=== PATIENT | female | born 1980 | race Caucasian/White ===

== ENCOUNTER 2017-10-01 21:41 | Emergency (ER) | payer BC ==
[2017-10-01 22:20] LABS: #Basophils 0.1 thou/uL (0.0-0.2); #Eosinphils 0.3 thou/uL (0.0-0.7); #Lymphocytes 3.1 thou/uL (1.20-3.40); #Monocytes 0.6 thou/uL (0.11-0.59); #Neutrophils 5.6 thou/uL (1.40-6.50); %Basophils 0.9 % (0.0-1.0); %Eosinophils 2.9 % (0.0-10.0); %Lymphocytes 31.9 % (21.0-51.0); %Monocytes 6.1 % (0.0-10.0); %Neutrophils 58.2 % (42.0-75.0); Hemoglobin 14.6 g/dL (12.0-16.0); Mean Corpuscular HGB CONC 34.4 g/dL (32.0-36.0); Mean Platelet Volume 7.1 fL (7.4-10.4); Platelet Count 317 thou/uL (130-400); RBC Distribution Width 11.1 % (11.5-14.5); Red Blood Cell (RBC) Count 4.72 mill/uL (4.20-5.40); White Blood Cell (WBC) Count 9.6 thou/uL (4.8-10.8)
[2017-10-01 22:25] LABS: BHCG - Serum Negative (NEGATIVE); Pregs Control Background? CLEAR/WHITE (CLR/WHITE); Pregs Control Bar Appear? YES (CONTROL BAR)
[2017-10-01 22:41] LABS: ALT (SGPT) 15 U/L (8-55); AST (SGOT) 16 U/L (5-34); Albumin 4.6 g/dL (3.5-5.0); Alkaline Phosphatase 54 U/L (40-150); Anion Gap 11 mmol/L (10-20); BUN (Urea Nitrogen) 10 mg/dL (7.0-18.7); Bilirubin, Total 0.5 mg/dL (0.2-1.2); Calc. Creatinine Clearance 0 mL/min (70-130); Calcium 9.5 mg/dL (7.8-10.44); Carbon Dioxide 20 mmol/L (22-29); Chloride 109 mmol/L (98-107); Estimated GFR-MDRD 53; Globulin 2.3 g/dL (2.4-3.5); Glucose 93 mg/dL (70-105); Lipase 12 U/L (8-78); Magnesium 2.1 mg/dL (1.6-2.6); Potassium 3.3 mmol/L (3.5-5.1); Protein, Total 6.9 g/dL (6.0-8.3); Sodium 137 mmol/L (136-145)
[2017-10-01 22:45] LABS: CKMB 0.6 ng/mL (0-6.6); Troponin I Less than 0.010 ng/mL (< 0.028)
--- NOTE | 2017-10-01 23:13 | RAD ---
PORTABLE CHEST: History: Chest pain. FINDINGS: Lungs are clear. Heart and mediastinum appear normal. IMPRESSION: Negative portable chest. POS: [facility]
[2017-10-01] MEDS ORDERED: Ketorolac Tromethamine 30 MG/ML VIAL ONE (23:32)
--- NOTE | 2017-10-28 01:25 | EKG ---
Test Reason : CHEST PAIN Blood Pressure : / mmHG Vent. Rate : 088 BPM Atrial Rate : 088 BPM P-R Int : 136 ms QRS Dur : 074 ms QT Int : 372 ms P-R-T Axes : 035 038 035 degrees QTc Int : 450 ms Normal sinus rhythm Nonspecific ST and T wave abnormality Abnormal ECG Confirmed by MAGDA VAZQUEZ, AGUSTÍN ([id number]), editorial manager [employer] ([id number]) on 10/28/2017 1:25:29 AM Referred By: Confirmed By:AGUSTÍN MAN MD
== END 2017-10-02 00:15 | disposition home or self-care (01) ==
LOC: ERS 21:41
DX: M94.0 Chondrocostal junction syndrome [Tietze] (principal); E03.9 Hypothyroidism, unspecified; G43.909 Migraine, unspecified, not intractable, without status migrainosus; F17.210 Nicotine dependence, cigarettes, uncomplicated; Z79.899 Other long term (current) drug therapy
CPT/HCPCS: 36415; 71045; 80053; 82553; 83690; 83735; 84484; 84703; 85025; 93005; 99406; J1885

== ENCOUNTER 2018-05-21 11:27 | Emergency (ER) | payer BC ==
--- NOTE | 2018-05-21 13:32 | RAD ---
ABDOMEN ONE VIEW: History: 37-year-old female with history of constipation, swelling in hands for three days. FINDINGS: Scattered gas and fecal material in the colon. No evidence for large or small bowel obstruction. No o vert calculus. IMPRESSION: Unremarkable abdomen one view. POS: [facility]
== END 2018-05-21 13:05 | disposition home or self-care (01) ==
LOC: ERS 11:27
DX: K59.00 Constipation, unspecified (principal); G43.909 Migraine, unspecified, not intractable, without status migrainosus; F17.210 Nicotine dependence, cigarettes, uncomplicated; Z79.899 Other long term (current) drug therapy; Z71.6 Tobacco abuse counseling
CPT/HCPCS: 74018

== ENCOUNTER 2018-05-21 22:36 | Emergency (ER) | payer BC ==
[2018-05-21] MEDS ORDERED: Acetaminophen 500 MG TAB ONE (23:55)
[2018-05-21] MEDS ORDERED: Cyclobenzaprine 10 MG TAB ONE (23:55)
--- NOTE | 2018-05-22 07:32 | CT ---
NONCONTRAST HEAD CT: Date: 05/21/18 COMPARISON: 04/17/13. HISTORY: Headache. FINDINGS: Limited evaluation due to motion degradation. No parenchymal hemorrhage. No extra-axial hematoma. No midline shift. Basilar cisterns are patent. Br ain volume, age-appropriate. Cortical rondon-white matter differentiation is preserved. No evidence of hydrocephalus. Adequate aeration of the sinuses and mastoid air cells. Minimal mucosal thickening of the right maxil vinny sinus. Calvarium is intact. IMPRESSION: No acute intracranial process. POS: [facility]
== END 2018-05-22 00:32 | disposition home or self-care (01) ==
LOC: ERS 22:36
DX: M62.838 Other muscle spasm (principal); R51 Headache; K08.89 Other specified disorders of teeth and supporting structures; F17.210 Nicotine dependence, cigarettes, uncomplicated; E03.9 Hypothyroidism, unspecified; L65.9 Nonscarring hair loss, unspecified; F41.9 Anxiety disorder, unspecified
CPT/HCPCS: 70450; 74018; 99406

== ENCOUNTER 2018-05-22 15:36 | Outpatient (CLI) | payer BC ==
--- NOTE | 2018-05-22 16:49 | RAD ---
3 VIEWS CERVICAL SPINE: Date: 05/22/18 COMPARISON: None. HISTORY: Knots in the neck with bilateral hand swelling. Cervical radiculopathy and cervical spine. FINDINGS: Lateral views of the cervical spine were performed in neutral, flexion, and extension. The vertebral bodies and intervertebral discs demonstrate normal height and alignment without fracture or subluxati on. No prevertebral soft tissue swelling is seen. No significant degenerative changes are seen. Align ment is unchanged with neutral, flexion, and extension. IMPRESSION: No significant abnormality. POS: [facility]
--- NOTE | 2018-05-22 17:17 | MRI ---
MRI OF THE CERVICAL SPINE WITHOUT CONTRAST: 05/22/18 COMPARISON: None. HISTORY: Knots in the neck and bilateral hand tingling and swelling. Cervical radiculopathy. TECHNIQUE: Multiplanar and multisequence MRI images were obtained in the cervical spine without contrast. FINDINGS: The vertebral bodies and intervertebral discs demonstrate normal height and alignment without fractur e or subluxation. The visualized cord demonstrates normal signal throughout. The craniocervical junct ion is unremarkable. The prevertebral and paraspinal soft tissues are unremarkable. No significant posterior bulge or protrusion is seen throughout the cervical spine. No posterior face t arthrosis is seen. No neural foraminal or central canal stenosis. IMPRESSION: Normal MRI of the cervical spine. POS: [facility]
== END 2018-05-22 15:37 | disposition home or self-care (01) ==
LOC: TBSIIMAG 15:36
PROVIDERS: ATTEND Neurological Surgery
DX: M54.12 Radiculopathy, cervical region (principal)
CPT/HCPCS: 72040; 72141

== ENCOUNTER 2018-09-18 08:43 | Outpatient (CLI) | payer BC ==
--- NOTE | 2018-09-18 09:30 | RAD ---
CHEST TWO VIEWS: Comparison: 02-20-17 FINDINGS: Normal cardiac silhouette. The pulmonary vessels and hilum are normal. Costophrenic angles are clear. No mass. No consolidation. No pneumothorax or osseous abnormalities. IMPRESSION: No acute cardiopulmonary process. POS: [facility]
== END 2018-09-18 08:44 | disposition home or self-care (01) ==
LOC: RAD-FRANK 08:43
PROVIDERS: ATTEND Nurse Practitioner Family
DX: R05 Cough (principal)
CPT/HCPCS: 71046

== ENCOUNTER 2019-04-26 23:22 | Emergency (ER) | payer BC ==
[2019-04-27 00:02] LABS: Bilirubin Negative (Negative); Blood, Urine Negative (Negative); Clarity Clear (Clear); Glucose, Urine (Dipstick) Normal (Negative); Leukocyte Negative Leu/uL (Negative); Nitrite Negative (Negative); Protein, Urine (Dipstick) Negative (Neg-Trace); Urobilinogen Normal mg/dL (Less than 2)
[2019-04-27 00:22] LABS: #Basophils 0.1 thou/uL (0.0-0.2); #Eosinphils 0.7 thou/uL (0.0-0.7); #Lymphocytes 3.3 thou/uL (1.20-3.40); #Monocytes 0.8 thou/uL (0.11-0.59); #Neutrophils 6.7 thou/uL (1.40-6.50); %Basophils 1.3 % (0.0-1.0); %Eosinophils 6.1 % (0.0-10.0); %Lymphocytes 28.2 % (21.0-51.0); %Neutrophils 57.4 % (42.0-75.0); Hemoglobin 15.1 g/dL (12.0-16.0); Mean Corpuscular HGB CONC 33.8 g/dL (32.0-36.0); Mean Corpuscular Volume 94.8 fL (78.0-98.0); Platelet Count 217 thou/uL (130-400); RBC Distribution Width 11.3 % (11.5-14.5); Red Blood Cell (RBC) Count 4.72 mill/uL (4.20-5.40); White Blood Cell (WBC) Count 11.7 thou/uL (4.8-10.8)
[2019-04-27 00:41] LABS: ALT (SGPT) 22 U/L (8-55); AST (SGOT) 26 U/L (5-34); Albumin 4.2 g/dL (3.5-5.0); Alkaline Phosphatase 64 U/L (40-110); Anion Gap 14 mmol/L (10-20); BUN (Urea Nitrogen) 13 mg/dL (7.0-18.7); Bilirubin, Total 0.2 mg/dL (0.2-1.2); Calc. Creatinine Clearance 0 mL/min (70-130); Carbon Dioxide 20 mmol/L (22-29); Chloride 106 mmol/L (98-107); Estimated GFR-MDRD 81; Globulin 2.4 g/dL (2.4-3.5); Glucose 103 mg/dL (70-105); Lipase 24 U/L (8-78); Potassium 4.1 mmol/L (3.5-5.1); Protein, Total 6.6 g/dL (6.0-8.3); Sodium 136 mmol/L (136-145)
== END 2019-04-27 01:16 | disposition left against medical advice (07) ==
LOC: ERS 23:22
DX: Z53.1 Procedure and treatment not carried out because of patient's decision for reasons of belief and group pressure (principal)
CPT/HCPCS: 36415; 80053; 81003; 83690; 85025

== ENCOUNTER 2019-09-20 23:21 | Emergency (ER) | payer SELFPAY | END 2019-09-20 23:57 | disposition left against medical advice (07) | LOC: ERS 23:21 | DX: Z53.21 Procedure and treatment not carried out due to patient leaving prior to being seen by health care provider (principal) ==

== ENCOUNTER 2019-09-21 07:59 | Day surgery (SDC) | payer SELFPAY ==
[2019-09-21] MEDS ORDERED: Piperacillin/Tazobactam 3.375 GM VIAL ONE (08:24)
[2019-09-21] MEDS ORDERED: Sodium Chloride 0.9% 100 ML ONE (08:25)
[2019-09-21] MEDS ORDERED: Fentanyl 100 MCG/2 ML VIAL ONE ×4 (09:00→13:28)
[2019-09-21] MEDS ORDERED: Midazolam HCl 2 mg/2 ml Vial ONE (09:07)
[2019-09-21] MEDS ORDERED: Lidocaine 1% w/Epinephrine 1:100K 20 ML VIAL ONE (09:57)
[2019-09-21] MEDS ORDERED: Bupivacaine 0.25% HCL 30 ML VIAL ONE (09:57)
[2019-09-21] MEDS ORDERED: Iothalamate Meglumine 60% 50 ML VIAL FS ONE (10:15)
[2019-09-21] MEDS ORDERED: Ketorolac Tromethamine 30 MG/ML VIAL ONE ×2 (11:21→14:12)
[2019-09-21] MEDS ORDERED: Dexamethasone 20 MG/5 ML VIAL ONE (11:21)
[2019-09-21] MEDS ORDERED: Rocuronium Bromide 10 MG/ML (10ML VIAL) ONE (11:21)
[2019-09-21] MEDS ORDERED: Lidocaine 1% PF 5 ML VIAL ONE (11:21)
[2019-09-21] MEDS ORDERED: Glycopyrrolate 0.2 MG/ML 5 ML SYRINGE ONE (11:21)
[2019-09-21] MEDS ORDERED: Ondansetron PF 4 MG/2 ML Vial ONE (11:21)
[2019-09-21] MEDS ORDERED: PROPOFOL 200 MG/20 ML VIAL ONE (11:21)
[2019-09-21] MEDS ORDERED: Ondansetron HCl/PF 4 MG/2 ML Vial IVP PRN (12:45)
[2019-09-21] MEDS ORDERED: Meperidine HCl/PF 25 MG/ML VIAL SLOW IVP PRN (12:45)
[2019-09-21] MEDS ORDERED: HYDROmorphone 2 MG/ML VIAL SLOW IVP PRN (12:45)
[2019-09-21] MEDS ORDERED: Promethazine HCl 25 MG/ML VIAL SLOW IVP PRN (12:45)
--- NOTE | 2019-09-21 13:20 | RAD ---
OPERATIVE CHOLANGIOGRAM: Date: 09/21/2019 Two fluoroscopic images taken in OR during operative cholangiogram procedure. INDICATION: Intraoperative imaging to assess bile duct. FINDINGS/IMPRESSION: Common bile duct is opacified. Spill into the duodenum is noted. No definite filling defect. The seco nd image shows evidence of contrast extravasation in the region of the gallbladder fossa. The first i mage shows a defect over the proximal common duct which is felt to be artifactual. POS: [facility]
[2019-09-21] MEDS ORDERED: Promethazine HCl 25 MG/ML VIAL ONE (13:46)
--- NOTE | 2019-09-21 16:36 | OP ---
DATE OF PROCEDURE: 09/21/2019 PREOPERATIVE DIAGNOSIS: Acute cholecystitis. PROCEDURE PERFORMED: Laparoscopic cholecystectomy with intraoperative cholangiogram. INDICATIONS: A 39-year-old female, who presented with severe right upper quadrant pain. Ultrasound showed multiple cholelithiasis, mild elevation of liver function tests. FINDING: She had some edema in the gallbladder wall consistent with acute cholecystitis. The cholangiogram showed no filling defects, free flow into the duodenum. Normal intrahepatic ducts. DESCRIPTION OF PROCEDURE: After informed consent was obtained, the patient was taken to the operating room and given general endotracheal anesthesia. She was placed in supine position. Abdomen was prepped and draped in usual fashion. Local anesthesia infiltrated subcutaneously and deep. A subumbilical incision was performed, subcu divided sharply. The fascia was grasped and 2 stay sutures of 0 Vicryl placed on either side of midline. Midline incised. Digital palpation revealed no local adhesions. A blunt 12 mm trocar inserted. Pneumoperitoneum was created to a pressure of 15 mmHg. A 0 degree laparoscope was inserted under direct vision. Three 5 mm ports were placed subcostally. The gallbladder was grasped and advanced superiorly. The peritoneum lysed distally to reveal the cystic duct, cystic artery and critical view. A clip was placed at the base of the gallbladder on the cystic duct. An incision made in the cystic duct and an Arrow cholangiocatheter inserted. Intraoperative cholangiogram was performed utilizing fluoroscopy. This showed no filling defects and good flow into the duodenum. The catheter was removed. The duct triply ligated and divided. The artery triply ligated and divided. The gallbladder removed from its fossa utilizing electrocautery, removed from the abdomen through the umbilical port. Hemostasis assured. Trocars and retractors were removed. The fascia closed with interrupted 0 Vicryl suture. The skin closed with interrupted 4-0 Rapide. Dermabond was applied. The patient tolerated the procedure well, transferred to Recovery in good condition. Sponge and needle count verified correct x2. Job ID: [id number]
== END 2019-09-21 15:10 | disposition home or self-care (01) ==
LOC: SDC 07:59
PROVIDERS: ATTEND Surgery
PROC: 0FT44ZZ Resection of Gallbladder, Percutaneous Endoscopic Approach (ICD-10-PCS; principal; 2019-09-21)
PROC: BF121ZZ Fluoroscopy of Gallbladder using Low Osmolar Contrast (ICD-10-PCS; principal; 2019-09-21)
DX: K80.12 Calculus of gallbladder with acute and chronic cholecystitis without obstruction (principal); J45.909 Unspecified asthma, uncomplicated; E03.9 Hypothyroidism, unspecified; Z79.899 Other long term (current) drug therapy; Z88.8 Allergy status to other drugs, medicaments and biological substances
CPT/HCPCS: 47532; 88304; J1100; J1885; J2001; J2250; J2405; J2543; J2550; J2704; J3010; J3490; S0020

== ENCOUNTER 2022-06-17 17:25 | Emergency (ER) | payer SELFPAY ==
[2022-06-17] MEDS ORDERED: traMADol HCl 50 MG TAB ONE (18:24)
[2022-06-17] MEDS ORDERED: Ketorolac Tromethamine 30 MG/ML VIAL ONE (18:25)
[2022-06-17] MEDS ORDERED: Lidocaine Viscous Sol 2% 15 ml UD Cup FS SCH (18:45)
== END 2022-06-17 19:15 | disposition home or self-care (01) ==
LOC: ERS 17:25
DX: S02.5XXA Fracture of tooth (traumatic), initial encounter for closed fracture (principal); E03.9 Hypothyroidism, unspecified; F17.210 Nicotine dependence, cigarettes, uncomplicated
CPT/HCPCS: 96372; 99283; J1885